=== PATIENT | male | born 1955 | race African-American/Black ===

== ENCOUNTER 2019-02-14 09:36 | Day surgery (SDC) | payer BC, OTHER ==
[~2019-02-14 09:36] MED LIST: PROPOFOL INJ 200 MG/20 ML VIAL IV ONE
[2019-02-14 11:44] VITALS: BP 103/66
--- NOTE | 2019-02-14 12:57 | Operative Report ---
Operative Report DATE OF SURGERY: 02/14/19 Operative Report: The risks, benefits and alternatives of the procedure including the risk of bleeding, perforation requiring surgery have been explained to the patient in detail and informed consent has been obtained. The patient is taken back to the endoscopy suite and placed in a left, lateral decubital position. Timeout was called. Propofol medication is administered. Rectal examination is done which did not reveal any masses, tears or fissures. An Olympus videoscope was introduced into the patient's rectum. The scope was then carefully advanced all the way to the cecum. The cecum was identified by the usual anatomical landmarks including the ileocecal valve as well as the appendiceal office. Photodocumentation is obtained. The scope was then sequentially pulled back via the various segments of the colon including the ascending colon, hepatic flexure, transverse colon, splenic flexure, descending colon finding to the rectosigmoid portions of the colon. Retroflexion maneuvers performed. PREOPERATIVE DIAGNOSIS: Personal history of polyps patient [facility] POSTOPERATIVE DIAGNOSIS: Cecal polyp x2 that was removed via snare polypectomy and retrieved. Hepatic flexure polyp that had previously had a tattoo site place but there is a pedunculated polyp that is removed via snare polypectomy. Sigmoid polyp was removed via snare polypectomy. Rectal polyp that was removed via snare polypectomy. There is a transverse colon sessile polyp again this had been previously polyp but not removed biopsies obtained it could not be removed safely via endoscopic polypectomy the area was re-tattooed. Patient needs to be sent for surgical evaluation OPERATION: Colonoscopy with snare polypectomy. Colonoscopy with submucosal injection. Colonoscopy with biopsy. All of these are done due to the fact that there are multiple polyps in different pathology needing different therapeutic measures SURGEON: FREDRICK LANDAVERDE ANESTHESIA: LMAC TISSUE REMOVED OR ALTERED: As noted above COMPLICATIONS: None. ESTIMATED BLOOD LOSS: None. INTRAOPERATIVE FINDINGS: As noted above. PROCEDURE: Patient tolerated the procedure well. No immediate postprocedure complications are noted. Patient is discharged in good condition. Discharge date 02/14/2019. Discharge diet: Regular. Discharge activity: Regular. 2 to 3-week follow-up to discuss findings. Patient will need surgical referral for surgical removal of transverse colon sessile polyp. We will wait on pathology. 1 year surveillance colonoscopy.
== END 2019-02-14 11:35 | disposition home or self-care (01) ==
LOC: END 09:36
PROVIDERS: ATTEND Internal Medicine Gastroenterology
DX: D12.0 Benign neoplasm of cecum (principal); D12.6 Benign neoplasm of colon, unspecified; D12.3 Benign neoplasm of transverse colon; D12.7 Benign neoplasm of rectosigmoid junction; Z86.010 Personal history of colon polyps; J44.9 Chronic obstructive pulmonary disease, unspecified; F17.210 Nicotine dependence, cigarettes, uncomplicated; I10 Essential (primary) hypertension; M10.9 Gout, unspecified; Z79.51 Long term (current) use of inhaled steroids; Z79.899 Other long term (current) drug therapy
CPT/HCPCS: 45380; 45385; 45381; 88305 ×2; J2704